=== PATIENT | female | born 1995 | race Hispanic/Latino ===

== ENCOUNTER 2019-02-20 19:18 | Emergency (ER) | payer OTHER ==
[~2019-02-20] VITALS: Ht 162.6 cm; Wt 71.8 kg
[2019-02-20] MEDS ORDERED: no home meds (19:23)
[2019-02-20 20:27] LABS: BASO % 0.6 % (0.0-1.0); EOS % 0.3 % (0.0-3.0); HEMATOCRIT 34.8 % (36.0-47.0); HEMOGLOBIN 11.4 g/dl (12.0-15.5); LYMPH # 0.7 10^3/uL (1.5-5.0); LYMPH % 19.4 % (24.0-44.0); MEAN CORPUSCULAR HEMOGLOBIN 26.6 pg (27.0-33.0); MEAN CORPUSCULAR HGB CONC 32.8 g/dl (32.0-36.5); MEAN CORPUSCULAR VOLUME 81.1 fl (80.0-96.0); MONO # 0.5 10^3/uL (0.0-0.8); MONO % 13.7 % (0.0-5.0); NEUTROPHILS # 2.3 10^3/uL (1.5-8.5); NEUTROPHILS % 65.7 % (36.0-66.0); PLATELET COUNT, AUTOMATED 220 10^3/uL (150-450); RED BLOOD COUNT 4.29 10^6/uL (4.00-5.40); WHITE BLOOD COUNT 3.5 10^3/uL (4.0-10.0)
[2019-02-20 20:40] LABS: MONO REFLEX EBV COMP NEGATIVE (NEGATIVE)
[2019-02-20 20:43] LABS: ERYTHROCYTE SEDIMENTATION RATE 35 mm/hr (0-20)
[2019-02-20 21:12] LABS: ALBUMIN 3.4 GM/DL (3.2-5.2); ALT/SGPT 23 U/L (12-78); BILIRUBIN,DIRECT < 0.1 MG/DL (0.0-0.2); BILIRUBIN,TOTAL 0.2 MG/DL (0.2-1.0); BLOOD UREA NITROGEN 5 MG/DL (7-18); C REACTIVE PROTEIN QUANTITATIV 1.46 MG/DL (0.00-0.30); CALCIUM LEVEL 8.5 MG/DL (8.5-10.1); CARBON DIOXIDE LEVEL 23 MEQ/L (21-32); CHLORIDE LEVEL 103 MEQ/L (98-107); CREATININE FOR GFR 0.54 MG/DL (0.55-1.30); GLOMERULAR FILTRATION RATE > 60.0 (>60); GLUCOSE, FASTING 77 MG/DL (70-100); HCG, SERUM QUANTITATIVE 64242 MIU/ML; LDH LACTATE DEHYDROGENASE 181 U/L (84-246); POTASSIUM SERUM 3.6 MEQ/L (3.5-5.1); SODIUM LEVEL 135 MEQ/L (136-145); TOTAL PROTEIN 7.4 GM/DL (6.4-8.2)
--- NOTE | 2019-02-20 21:56 | REPVR ---
PROCEDURE INFORMATION: Exam: US First Trimester, Transabdominal Exam date and time: 02/20/2019 9:26 PM Age: 23 years old Clinical indication: complicated by abdominal or pelvic pain; Lower; First trimester; Gestational age or lmp: Lmp 12/21/18; ; Additional info: Cramping TECHNIQUE: Imaging protocol: Real-time transabdominal obstetrical ultrasound of the maternal pelvis and a first trimester , less than 14 weeks 0 days, with image documentation. COMPARISON: No relevant prior studies available. FINDINGS: Intrauterine gestational sac with decidual reaction is present. No evidence of implantational hemorrhage. Yolk sac is present. pole is identified, measuring 31 mm in length. Doppler demonstrates heart rate of 169 beats/min. Right ovary measures 5.3 x 4.3 x 4.7 cm in size. 3.1 cm corpus luteum cyst Left ovary measures 2.7 x 4 x 2.2 cm in size. Both right and left ovary demonstrate normal Doppler flow. No abnormal volume of free pelvic fluid. IMPRESSION: Early intrauterine at 9 weeks 6 days estimated gestational age. No complication. Electronically signed by: Ramon Cespedes On 02/20/2019 21:55:45 PM
[2019-02-20] MEDS ORDERED: predniSONE 20 MG TAB PO ONE (22:45)
[2019-02-20] MEDS ORDERED: HYDR25OIN TOP (23:07)
[2019-02-20] MEDS ORDERED: PRED20TA PO (23:07)
[2019-02-20] MEDS ORDERED: BENA25CA4 PO (23:07)
[2019-02-20 23:19] VITALS: BP 126/71
[2019-02-23 00:06] LABS: CYTOMEGALOVIRUS IgG ANTIBODY <0.60 U/mL (0.00-0.59); CYTOMEGALOVIRUS IgM ANTIBODY <30.0 AU/mL (0.0-29.9); EBV VIRAL CAPSID AG IgM <36.0 U/mL (0.0-35.9)
== END 2019-02-20 23:20 | disposition home or self-care (01) ==
LOC: M ED 19:18
DX: O99.711 Diseases of the skin and subcutaneous tissue complicating pregnancy, first trimester (principal); Z3A.09 9 weeks gestation of pregnancy

== ENCOUNTER → 2019-03-08 | Outpatient (CLI) | payer OTHER ==
[~2019-03-08] MED LIST: BENA25CA4 PO; HYDR25OIN TOP; PRED20TA PO; no home meds
--- NOTE | 2019-03-08 10:12 | REP ---
OBSTETRIC SONOGRAPHY: HISTORY: Supervision of . No cardiac motion seen. FINDINGS: A single intrauterine gestation is observed on transabdominal scanning. No cardiac motion or motion is observed. The embryonic pole is 50 mm in crown-rump length. This would correspond with a gestational age estimate of 11 weeks 5 days. No subchorionic hemorrhage is seen. There is a small right ovarian corpus luteal cyst. IMPRESSION: Findings consistent with intrauterine demise at 11 weeks 5 days by crown-rump length. Electronically Signed by Figueroa Sultana MD 03/08/2019 10:37 A
== END ==
LOC: M RAD 09:07
PROVIDERS: ATTEND Obstetrics & Gynecology
DX: Z36.89 Encounter for other specified antenatal screening (principal)

== ENCOUNTER 2019-03-09 09:33 | Day surgery (SDC) | payer OTHER ==
[~2019-03-09] VITALS: Ht 162.6 cm; Wt 67.9 kg
[~2019-03-09 09:33] MED LIST changes: +DOXYCYCLINE HYCLATE 100 MG TAB PO ONE; +LR 1,000 ML IV ONE
[2019-03-09 09:57] LABS: HEMATOCRIT 32.1 % (36.0-47.0); HEMOGLOBIN 10.4 g/dl (12.0-15.5); MEAN CORPUSCULAR HEMOGLOBIN 26.3 pg (27.0-33.0); MEAN CORPUSCULAR HGB CONC 32.4 g/dl (32.0-36.5); MEAN CORPUSCULAR VOLUME 81.3 fl (80.0-96.0); PLATELET COUNT, AUTOMATED 337 10^3/uL (150-450); RED BLOOD COUNT 3.95 10^6/uL (4.00-5.40); WHITE BLOOD COUNT 5.7 10^3/uL (4.0-10.0)
[2019-03-09] MEDS ORDERED: BUPIVACAINE/EPIN 0.25% 30 ML VIAL As Ordered ONE (10:46)
[2019-03-09] MEDS ORDERED: ONDANSETRON 4MG/2ML VIAL (J2405) As Ordered ONE (10:48)
[2019-03-09] MEDS ORDERED: MIDAZOLAM INJ 2 MG/2 ML VIAL (J2250) As Ordered ONE (10:48)
[2019-03-09] MEDS ORDERED: fentaNYL 100 MCG/2 ML INJECTION (J3010) As Ordered ONE ×3 (10:48→12:08)
[2019-03-09] MEDS ORDERED: LIDOCAINE 2% INJ 100 MG/5 ML SDV (FOR ANES.) As Ordered ONE (10:48)
[2019-03-09] MEDS ORDERED: dexameTHASONE 4 MG/ML 1ML VIAL (J1100) As Ordered ONE (10:48)
[2019-03-09] MEDS ORDERED: PROPOFOL 200 MG/20 ML VIAL As Ordered ONE ×2 (10:48→11:27)
[2019-03-09] MEDS ORDERED: KETOROLAC 60 MG/2 ML VIAL (J1885) As Ordered ONE (11:34)
[2019-03-09] MEDS ORDERED: ACETAMINOPHEN 1000MG 100ML IV BTL (OFIRMEV) (J0131 PER 10MG) As Ordered ONE (11:34)
[2019-03-09] MEDS ORDERED: miSOPROStol 200 MCG TAB (S0191) As Ordered ONE (11:40)
--- NOTE | 2019-03-09 13:17 | POST-OPPD ---
Postoperative Procedure Note Date Of Procedure: Mar 09, 2019 PREOPERATIVE DIAGNOSIS: missed POSTOPERATIVE DIAGNOSIS: natali FINDINGS: tissue consistent with products of conception PROCEDURE: suction dilation and curettage SURGEON: Bernard Hernandez DO [employer] HELPER: ANESTHESIA: MAC SPECIMENS: products of conception ESTIMATED BLOOD LOSS: 150cc REPLACED: 1000cc LR DRAINS: n/a COMPLICATIONS: none POSTOPERATIVE CONDITION: stable. Detail procedure note: Operative findings: intrauterine contents consistent with product of conception. Description of procedure: The risks, benefits, indications and alternatives of the procedure were reviewed with the patient and informed consent was obtained. The patient was taken to the operating room with IV running. Patient under conscious sedation. Patient placed in lithotomy position. Patient vagina and perineum prepped and draped in the usual sterile fashion. Speculum placed vaginally and cervix visualized. The anterior of cervix grasp with single tooth tenaculum. Bilateral uterosacral injected with Marcaine 0.25% with epi for local block. Cervix dilated to 11mm. Curved suction curette (11mm) used with multiple passes until no additional tissue is retrieved. Medium sharp curette used until a gritty texture is felt on all four quadrants. Suction curette reintroduced to remove remainder of tissue. There was brisk bleeding during curetting. Bleeding subsided with bimanual massage. Cytotec 800mcg placed rectally. All instruments removed from the vagina. Sponge and instruments count correct x 2. Patient was taken out of OR in stable condition. BERNARD HERNANDEZ DO Mar 09, 2019 13:17
[2019-03-09 13:55] VITALS: BP 103/59
[2019-03-09] MEDS ORDERED: LR 1,000 ML IV SCH (14:00)
[2019-03-09] MEDS ORDERED: DOXYCYCLINE HYCLATE 100 MG TAB PO ONE (14:00)
== END 2019-03-09 14:15 | disposition home or self-care (01) ==
LOC: M SDC 09:33
PROVIDERS: ATTEND Obstetrics & Gynecology
DX: O02.1 Missed abortion (principal); Z92.3 Personal history of irradiation; Z92.21 Personal history of antineoplastic chemotherapy; D64.9 Anemia, unspecified
CPT/HCPCS: 36415; 59820; 85027; 86850; 86900; 86901; 88305; J0131; J1100; J1885; J2250; J2405; J3010

== ENCOUNTER → 2020-01-13 | Outpatient (REF) | payer OTHER ==
[~2020-01-13] MED LIST changes: -DOXYCYCLINE HYCLATE 100 MG TAB PO ONE; -LR 1,000 ML IV ONE
[2020-01-13 19:28] LABS: HIV 1&2 SCREEN CENTAUR NEGATIVE (NEGATIVE)
[2020-01-14 07:57] LABS: CHLAMYDIA DNA AMPLIFICATION NEGATIVE (NEGATIVE); GC DNA AMPLIFICATION NEGATIVE (NEGATIVE)
[2020-01-16 12:18] LABS: HEPATITIS C VIRUS ABY INDEX 0.1 INDEX (<0.8)
== END ==
LOC: M PLALAB 14:30
PROVIDERS: ATTEND Advanced Practice Midwife
DX: Z11.3 Encounter for screening for infections with a predominantly sexual mode of transmission (principal)

== ENCOUNTER → 2020-01-17 | Outpatient (CLI) | payer OTHER ==
--- NOTE | 2020-01-18 04:11 | REP ---
INDICATION: N92.0 MENORRHAGIA COMPARISON: None. TECHNIQUE: Transabdominal pelvic ultrasound followed by transvaginal examination for better evaluation of the endometrium and adnexa with color Doppler evaluation of the ovaries. FINDINGS: Bladder is unremarkable and measures approximately 4.7 x 4.3 x 6.4 cm. Normal anteverted uterus measures 8.9 x 3.7 x 4.6 cm. The endometrial complex measures 5.7 mm thickness. No discrete uterine or endometrial abnormalities are appreciated. Bilateral ovaries are normal in appearance and vascularity without torsion. Right ovary measures 4.3 x 2.2 x 3.0 cm; R I = 0.43. Left ovary measures 3.2 x 1.8 x 1.7 cm; R I = 0.56. Evidence for Caesarean section scar along the anterior margin of the uterus. No pelvic fluid or adnexal mass lesion. IMPRESSION: Essentially normal pelvic ultrasound. <Electronically signed by Wilmar Piemntel > 01/18/20 [id number]
== END ==
LOC: M WHC 12:54
PROVIDERS: ATTEND Advanced Practice Midwife
DX: N92.0 Excessive and frequent menstruation with regular cycle (principal)